=== PATIENT | female | born 1990 | race Caucasian/White ===

== ENCOUNTER 2017-10-23 09:49 | Emergency (ER) ==
[2017-10-23 10:01] VITALS: BP 127/90; TEMP 97.3; BMI 27.3
--- NOTE | 2017-10-23 10:32 | ED.PDOC ---
General ED Provider: Dr. MANGO MA Chief Complaint: Abdominal Pain Stated Complaint: Patient is a 27 year old female who states that she started having back pain 3 days ago thought it was her menstral cramps. The pain did not go away but started getting abdominal pain worse yesterday better today with Nausea but no vomiting. Time Seen by Physician: 10:29 Mode of Arrival: Walk-In Information Source: Patient Exam Limitations: No limitations Primary Care Provider: ROSA PALACIO Nursing and Triage Documentation Reviewed and Agree: Yes Does patient meet sepsis criteria?: No System Inflammatory Response Syndrome: Not Applicable Sepsis Protocol: For patient's 13 years and over: Temp is 96.8 and below OR 101 and greater Pulse >90 BPM Resp >20/minute Acutely Altered Mental Status Are patient's symptoms suggestive of a new infection, such as: -Pneumonia -Skin, Soft Tissue -Endocarditis -UTI -Bone, Joint Infection -Implantable Device -Acute Abdominal Infection -Wound Infection -Meningitis -Blood Stream Catheter Infection -Unknown GI Complaint Exam - Abdominal Pain Complaint/Exam Onset: Gradual Duration: constant but intermitent in intensity Symptoms Are: Still present Timing: Intermittent Initial Severity: Severe Current Severity: Moderate (5/10) Location of Pain: Diffuse Character: Reports: Cramping Aggravating: Reports: None Alleviating: Reports: None Associated Signs and Symptoms: Reports: Nausea. Denies: Vomiting AAA Risk Factors: Reports: None Ectopic Risk Factors: Reports: None Ovarian Torsion Risk Factors: Reports: None Related Surgical History: Reports: None Patient Rh Status: Unknown Abdominal Findings: Present: Other (mild tendeness ) Differential Diagnoses: Constipation, Pancreatitis, Ureteral Stone, GB, PUD Review of Systems - Review Of Systems Constitutional: Reports: No symptoms Eyes: Reports: No symptoms Ears, Nose, Mouth, Throat: Reports: No symptoms Respiratory: Reports: No symptoms Cardiac: Reports: No symptoms GI: Reports: Abdominal pain, Nausea : Reports: No symptoms Musculoskeletal: Reports: No symptoms Skin: Reports: No symptoms Neurological: Reports: No symptoms Endocrine: Reports: No symptoms Hematologic/Lymphatic: Reports: No symptoms All Other Systems: Reviewed and Negative Past Medical History - Past Medical History Previously Healthy: Yes Endocrine: Reports: None Cardiovascular: Reports: None Respiratory: Reports: None Hematological: Reports: None Gastrointestinal: Reports: None Genitourinary: Reports: None Neuro/Psych: Reports: None Musculoskeletal: Reports: None Cancer: Reports: None Last Menstrual Period: spotting now - Surgical History General Surgical History: Reports: Tonsillectomy - Family History Family History: Reports: Unknown - Social History Smoking Status: Never smoker Hx Substance Use: No Alcohol Screening: None Physical Exam - Physical Exam Appearance: Ill-appearing Ill-appearing: Moderate Respiratory: Airway patent, Breath sounds clear, Breath sounds equal, Respirations nonlabored Cardiovascular: RRR, Pulses normal, No rub, No murmur GI/: Tender (mild no rebound ) Skin: Warm, Dry, Normal color Neurological: Sensation intact, Motor intact, Reflexes intact, Cranial nerves intact, Alert, Oriented Psychiatric: Anxious Critical Care Note - Critical Care Note Total Time (mins): 0 Comments: Patient states pain is better but would like to have the shot for pain Course - Course Hematology/Chemistry: 10/23/17 10:20 10/23/17 10:20 Orders, Labs, Meds: Lab Review 10/23/17 10/23/17 10/23/17 10:12 10:20 10:20 WBC 9.63 RBC 4.70 Hgb 14.6 Hct 42.2 MCV 89.8 MCH 31.1 H MCHC 34.6 RDW Coeff of Yesenia 11.2 L Plt Count 303 Immature Gran % (Auto) 0.3 Neut % (Auto) 77.5 Lymph % (Auto) 16.7 Garland % (Auto) 4.0 Eos % (Auto) 1.1 Baso % (Auto) 0.4 Immature Gran # (Auto) 0.0 Neut # (Auto) 7.5 H Lymph # (Auto) 1.6 Garland # (Auto) 0.4 Eos # (Auto) 0.1 Baso # (Auto) 0.0 Sodium 137.8 Potassium 4.12 Chloride 104.8 Carbon Dioxide 25.6 Anion Gap 11.52 BUN 5.8 L Creatinine 0.72 Estimated GFR (MDRD) 99.00 BUN/Creatinine Ratio 8.05 Glucose 97.9 Calcium 9.51 Total Bilirubin 0.35 AST 26.6 ALT 20.9 Alkaline Phosphatase 72.2 Total Protein 7.95 Albumin 4.25 Globulin 3.70 Albumin/Globulin Ratio 1.14 Amylase 79.5 Lipase 61.0 Serum , Qual Urine Color Yellow Urine Clarity Clear Urine pH 7.0 Ur Specific Fletcher 1.020 Urine Protein Negative Urine Glucose (UA) Negative Urine Ketones Negative Urine Blood 1+ Urine Nitrite Negative Urine Bilirubin Negative Urine Urobilinogen 0.2 Ur Leukocyte Esterase Negative Urine Microscopic RBC 0-2 Ur Squamous Epith Cells 0-2 10/23/17 10:20 WBC RBC Hgb Hct MCV MCH MCHC RDW Coeff of Yesenia Plt Count Immature Gran % (Auto) Neut % (Auto) Lymph % (Auto) Garland % (Auto) Eos % (Auto) Baso % (Auto) Immature Gran # (Auto) Neut # (Auto) Lymph # (Auto) Garland # (Auto) Eos # (Auto) Baso # (Auto) Sodium Potassium Chloride Carbon Dioxide Anion Gap BUN Creatinine Estimated GFR (MDRD) BUN/Creatinine Ratio Glucose Calcium Total Bilirubin AST ALT Alkaline Phosphatase Total Protein Albumin Globulin Albumin/Globulin Ratio Amylase Lipase Serum , Qual Negative Urine Color Urine Clarity Urine pH Ur Specific Fletcher Urine Protein Urine Glucose (UA) Urine Ketones Urine Blood Urine Nitrite Urine Bilirubin Urine Urobilinogen Ur Leukocyte Esterase Urine Microscopic RBC Ur Squamous Epith Cells Orders Category Date Time Status AMYLASE Stat LAB 10/23/17 10:20 Completed CBC W/ AUTO DIFF Stat LAB 10/23/17 10:20 Completed COMPREHENSIVE METABOLIC PANEL Stat LAB 10/23/17 10:20 Completed HCG QUALITATIVE [SERUM ] Stat LAB 10/23/17 10:20 Completed LIPASE Stat LAB 10/23/17 10:20 Completed URINALYSIS C & S IF INDICATED Stat LAB 10/23/17 10:12 Completed Dicyclomine Inj [Bentyl] MEDS 10/23/17 10:36 Discontinued 20 mg IM ONCE STA Ketorolac Tromethamine [Toradol] MEDS 10/23/17 11:21 Discontinued 60 mg IM ONCE STA Medications Discontinued Medications Generic Name Dose Route Start Last Admin Trade Name Freq PRN Reason Stop Dose Admin Dicyclomine HCl 20 mg 10/23/17 10:36 10/23/17 10:56 Bentyl IM 10/23/17 10:37 20 mg ONCE STA Administration Ketorolac Tromethamine 60 mg 10/23/17 11:21 10/23/17 11:45 Toradol IM 10/23/17 11:22 Not Given ONCE STA Vital Signs: Temp Pulse Resp BP Pulse Ox 10/23/17 09:51 97.3 F L 87 20 127/90 99 Departure - Departure Time of Disposition: 12:04 Disposition: HOME SELF-CARE Discharge Problem: Dysmenorrhea Instructions: Dysmenorrhea (ED) Condition: Stable Pt referred to PMD for follow-up: Yes IPMP verified?: No Additional Instructions: Take Medications as prescribed Follow up with PCP in 3 days. Prescriptions: Ibuprofen [Motrin] 600 mg PO Q6H PRN #60 tablet PRN Reason: Analgesia Allergies/Adverse Reactions: Allergies Penicillins Adverse Reaction (Verified 11/08/14 16:49) Home Medications: Ambulatory Orders Ibuprofen [Motrin] 600 mg PO Q6H PRN #60 tablet 10/23/17 Norethindrone-E.estradiol-Iron [Taytulla 1 mg-20 Mcg Capsule] 1 each PO DAILY Disposition Discussed With: Patient, Family
[2017-10-23] MEDS ORDERED: BENTYL IM STA (10:36)
[2017-10-23] MEDS: TORADOL IM STA ×2 (11:45→12:22)
== END 2017-10-23 12:51 | disposition home or self-care (01) ==
LOC: ED 09:49
DX: N94.6 Dysmenorrhea, unspecified (principal)
CPT/HCPCS: 36415; 80053; 81001; 82150; 83690; 84703; 85025; 96372; 99283